=== PATIENT | female | born 1985 | race Caucasian/White ===

== ENCOUNTER 2016-04-11 08:28 | Emergency (ER) | payer SELFPAY ==
[~2016-04-11] VITALS: Ht 180.3 cm; Wt 124.5 kg
[2016-04-11 08:42] VITALS: BP 132/84; PULSE 98; RESP 18; TEMP 98.3; O2SAT 99
--- NOTE | 2016-04-11 08:53 | PD ---
HPI Chief Complaint: Musculoskeletal Complaint Time Seen by Provider: 08:46 Travel History International Travel<30 days: No Contact w/Intl Traveler<30days: No Traveled to known affect area: No History of Present Illness HPI The patient is a 30-year-old female who presents emergency department for right knee pain. The patient states she was playing last night, with her kids, when she was running and stopped short. The patient states she hyperextended her right knee. She now complains of pain and swelling of the right knee. The patient also states she hurt 2 distinct "popsicle, when she hyperextended her knee. She now has difficulty bearing weight on the affected late secondary to pain and notes limited range of motion. She does note the area swollen and tender, worsen movement, slightly alleviated at rest. The patient denies , currently has an IUD in place. PFSH Past Medical History Cardiovascular Problems: Yes (MITRAL VALVE PROLAPSE) ?: Not LMP: 03/11/16 Past Surgical History Narrative Surgical Gastric sleeve Social History Alcohol Use: No Tobacco Use: No Substance Use: No Allergies-Medications (Allergen,Severity, Reaction): Coded Allergies: Shellfish (Verified Allergy, Unknown, 04/11/16) Reported Meds & Prescriptions Reported Meds & Active Scripts Active No Active Prescriptions or Reported Medications Review of Systems Genitourinary: Positive: Other (IUD in place, denies ) Musculoskeletal: Positive: Limited ROM, Edema, Pain Neurologic: No: Paresthesia, Sensory Disturbance Physical Exam Narrative GENERAL: Awake, alert, pleasant 30-year-old female who appears her stated age and is in no acute respiratory distress. SKIN: Warm and dry. HEAD: Atraumatic. Normocephalic. EYES: No injection or drainage. MUSCULOSKELETAL: The right knee is swollen compared to left. Limited range of motion of approximately 30 on the right secondary to pain. Positive distal pulses. Patella is midline. Positive for effusion. NEUROLOGICAL: Awake and alert. No obvious cranial nerve deficits. Motor grossly within normal limits. Normal speech. PSYCHIATRIC: Appropriate mood and affect; insight and judgment normal. Data Data Last Documented VS Vital Signs Date Time Temp Pulse Resp B/P Pulse Ox O2 Delivery O2 Flow Rate FiO2 04/11/16 08:42 98.3 98 18 132/84 99 Orders Knee, Complete (4vws) (04/11/16 ) Ct Knee W/O Contrast (04/11/16 ) Acetamin-Hydrocod 325-5 Mg (Naylor 5-325 (04/11/16 09:45) Ibuprofen (Motrin) (04/11/16 09:45) MDM Medical Decision Making Medical Screen Exam Complete: Yes Emergency Medical Condition: Yes Medical Record Reviewed: Yes Interpretation(s) Last Impressions Lower Extremity CT 04/11/16 0000 Signed Impressions: Service Date/Time: March 09:56 - CONCLUSION: 1. There is a large osteochondral defect along the medial aspect of the left medial femoral condyle. This appears old as the margins are sclerotic. 2. Possible ACL tear. MRI imaging is recommended for further assessment. 3. There are degenerative changes in both medial and lateral compartment with a large joint effusion in the suprapatellar bursa. 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 5. Varicose veins. Adin García MD Knee X-Ray 04/11/16 0000 Signed Impressions: Service Date/Time: March 08:54 - CONCLUSION: 1. Plain film finding concerning for a large osteochondral defect in the medial femoral condyle. 2. Associated moderate sized suprapatellar effusion. Conner Frias MD Differential Diagnosis Differential diagnosis includes sprain, strain, ligament injury, tendon injury, joint effusion, avulsion fracture. Narrative Course X-ray of the right knee was obtained. X-ray of the right knee reveals plain film finding concerning for a large osteochondral defect in the medial femoral condyle and associated moderate-sized suprapatellar effusion. Therefore, noncontrast CT of the right knee was obtained. CT of the knee reveals that the osteochondral defect. Sclerotic, possibly old, but could be acute ACL injury. Therefore, patient was placed in the immobilizer placed on crutches, she will be referred to orthopedics. She is advised to return if symptoms worsen or progress. Diagnosis Primary Impression: Right knee pain Qualified Code: M25.561 - Acute pain of right knee Referrals: Marv Awan Jr., MD Patient Instructions: General Instructions Additional Instructions: Crutches and knee immobilizer as directed. Follow-up with orthopedics. Return if symptoms worsen or progress. Please provide the patient a copy of her CT results and x-ray results at discharge. Med/Other Pt SpecificInfo: Prescription(s) given Scripts Hydrocodone-Acetaminophen (Naylor)5-325 mg Tab1 Tab PO Q6H PRN (PAIN) #15 TAB Ref 0 Prov:Johnathon Lester MD 04/11/16 Ibuprofen 600 Mg [id number] Mg PO Q6H PRN (Pain/Inflammation) #40 TAB Ref 0 Prov:Johnathon Lester MD 04/11/16 Disposition: 01 DISCHARGE HOME Condition: Stable Johnahton Lester MD Apr 11, 2016 08:53
--- NOTE | 2016-04-11 09:22 | RADHPO ---
EXAM DATE/TIME: 04/11/2016 08:54 [facility] COMPARISON: No previous studies available for comparison. INDICATIONS : Injured right knee playing ball last night, pain is mainly anterior and medial MEDICAL HISTORY : None. SURGICAL HISTORY : None. ENCOUNTER: Initial ACUITY: 1 day PAIN SCORE: 9/10 LOCATION: Right knee FINDINGS: Four view examination of the right knee demonstrates a lucency along the medial femoral condyle lakeisha rning for a osteochondral defect. In addition, there is a moderate suprapatellar effusion. Osseous st ructures are otherwise intact and joint spaces are maintained. CONCLUSION: 1. Plain film finding concerning for a large osteochondral defect in the medial femoral condyle. 2. Associated moderate sized suprapatellar effusion. Conner Frias MD on April 11, 2016 at 9:12 Board Certified Radiologist. This report was verified electronically.
[2016-04-11] MEDS ORDERED: ACETAMINOPHEN/HYDROcodone 325 MG/5 MG TAB PO ONE (09:45)
[2016-04-11] MEDS ORDERED: IBUPROFEN 400 MG TAB PO ONE (09:45)
--- NOTE | 2016-04-11 10:20 | RADHPO ---
EXAM DATE/TIME: 04/11/2016 09:56 [facility] COMPARISON: KNEE RIGHT COMPLETE (4VWS), April 11, 2016, 8:54. INDICATIONS : Right knee pain and swelling. Hyperextended her knee yesterday. Abnormal x-ray. RADIATION DOSE: 15.20 CTDIvol (mGy) MEDICAL HISTORY : Cardiovascular disease. SURGICAL HISTORY : None. ENCOUNTER: Initial ACUITY: 1 day PAIN SCALE: 9/10 LOCATION: Right knee TECHNIQUE: Volumetric scanning of the knee was performed. Using automated exposure control and adjustment of th e mA and/or kV according to patient size, radiation dose was kept as low as reasonably achievable to obtain optimal diagnostic quality images. FINDINGS: The examination demonstrates a large osteochondral defect in the posterior medial aspect of the left femoral condyle. This appears to be the sequelae of old trauma. The margins of this are quite sclerot ic. There is a large joint effusion in the suprapatellar bursa. There are mild degenerative changes w ithin the lateral compartment as well. The posterior cruciate ligament is visualized and appears intact. The anterior cruciate is not visual ized. The exam would suggest possible ACL tear. MRI imaging would be far more sensitive to assess thi s. Note is made of an old nonossifying fibroma along the posterior aspect of the tibial cortex. Note is made of varicose veins along the lateral aspect of the right by and leg. CONCLUSION: 1. There is a large osteochondral defect along the medial aspect of the left medial femoral condyle. This appears old as the margins are sclerotic. 2. Possible ACL tear. MRI imaging is recommended for further assessment. 3. There are degenerative changes in both medial and lateral compartment with a large joint effusion in the suprapatellar bursa. 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 5. Varicose veins. Adin García MD on April 11, 2016 at 10:13 Board Certified Radiologist. This report was verified electronically.
[2016-04-11] MEDS ORDERED: NORC5TAB PO (10:30)
[2016-04-11] MEDS ORDERED: IBUP-232 PO (10:30)
== END 2016-04-11 10:54 | disposition home or self-care (01) ==
LOC: PHEFT 08:28
DX: M25.561 Pain in right knee (principal); X50.9XXA Other and unspecified overexertion or strenuous movements or postures, initial encounter; Y93.02 Activity, running
CPT/HCPCS: 73564; 73700; 99284; E0113; L1830

== ENCOUNTER → 2016-10-18 | Day surgery (SDC) | payer OTHER ==
[~2016-10-18] MED LIST: BACITRACIN IM FOR SOLN 50,000 UNIT VIAL ONE; BUPIVACAINE HCL PF 0.75% 30 ML VIAL ONE; BUPIVACAINE/EPINEPHRINE 0.25% 50 ML VIAL ONE; BUPIVACAINE/EPINEPHRINE 0.5% 50 ML VIAL ONE; EPINEPHrine HCL (1:1000) 30 MG/30 ML VIAL ONE; IBUP-232 PO; KETOROLAC TROMETHAMINE 30 MG/ML (IVP) VIAL IV PUSH ONE; LACTATED RINGER'S 1000 ML INJ 1,000 ML ONE; LIDOCAINE 1.5%/EPINEPHrine 1:200,000 PF SOLN 30 ML AMP ONE; MIDAZOLAM HCL 5 MG/ML VIAL (1 ML) ONE; NORC5TAB PO; ONDANSETRON HCL 4 MG/2 ML VIAL IV PUSH ONE; PROPOFOL 200 MG/20 ML AMP IV ONE; SODIUM CHLORIDE 0.9% INJ 10 ML ONE; ceFAZolin 2 GM PREMIX 50 ML ONE; ceFAZolin INJ 1,000 MG VIAL ONE
--- NOTE | 2016-10-21 08:17 | MP ---
cc: REBA YI M.D. DATE OF SURGERY 10/18/2016. PREOPERATIVE DIAGNOSES Right knee anterior cruciate ligament tear. Right knee medial meniscus tear. POSTOPERATIVE DIAGNOSES Right knee anterior cruciate ligament tear. Right knee medial meniscus tear. PROCEDURE Right knee arthroscopic anterior cruciate ligament allograft reconstruction. Right knee arthroscopic partial medial meniscectomy. SURGEON Dr. Reba Yi SOCIAL WORKER Madhav Zamudio PA-C ANESTHESIA General with a femoral nerve block. ESTIMATED BLOOD LOSS Less than 50 cc TOURNIQUET TIME 0 minutes. COMPLICATIONS None. IMPLANTS USED Arthrex. JUSTIFICATION This patient is a 31-year-old female who injured the right knee. She had resulting persistence of pain and instability in regards to her condition with failed conservative treatment. Clinical exam as well as MRI confirmed the above-named findings. The patient was counseled as to the risks, benefits and alternatives of the above-named proposed surgical procedure. She did wish to proceed with surgery. PROCEDURE IN DETAIL Written consent was obtained. The patient was identified by names. The anesthesiologist, Dr. Sams, performed a right femoral nerve block. The patient was taken to the operating room and general anesthesia was administered as well as 2 grams of IV Ancef. The right thigh was carefully placed in a well-padded leg hawley, the right lower extremity prepped and draped using isopropyl alcohol, Hibiclens solution and ChloraPrep solution. After a time-out was performed, a standard medial and lateral parapatellar arthroscopic portal was established. The patellofemoral joint revealed no chondromalacia. The medial compartment revealed a complex unstable tear of the posterior horn of the medial meniscus. An arthroscopic biter followed by an arthroscopic shaver was introduced into the medial compartment to perform a partial medial meniscectomy. The meniscal rim was probed and note to be stable. There is evidence of an osteochondral injury. The medial femoral condyle was stable upon probing. The intercondylar notch revealed disruption of the anterior cruciate ligament. The lateral compartment was free of meniscal pathology and chondromalacia. The shaver was used to perform debridement of the torn anterior cruciate ligament itself and arthroscopic bur was used to perform a notchplasty. The posterior wall was well-visualized. An Arthrex retro-cutting tibial guide was centered within the footprint of the lumbee ACL, was used to capture a 10-mm drill bit. The tibial tunnel was retro-cut 10 mm in diameter. A 7-mm [id number] medial portal guide was placed along the lateral femoral condyle from the medial portal. The knee was hyper-flexed. A guide pin was drilled exiting the superolateral aspect of the knee. Subsequently a low-profile cannulated 10-mm reamer was drilled to a depth of 25 mm. The shaver was used to clean soft tissue and bone debris from within the knee joint. The Beath needle was used to shuttle a FiberLink suture initially from the medial portal exiting the femoral tunnel, then subsequently from the tibial tunnel. On the back table the posterior tibialis tendon allograft was thawed in antibiotic solution. Madhav Zamudio, physician liaison inspection laboratory assistant certified, was instrumental in fashioning the graft to its full diameter of 10 mm. A #2 FiberWire whipstitch was placed in the proximal and distal portion of the graft and graft was pre-tensioned on the back table. Once prepared, an Arthrex TightRope anchor was placed in the midportion of the graft. The sutures from the anchor were placed through the eyelet of the FiberLink suture then shuttled from the tibial tunnel exiting the femoral tunnel. The flipped anchor was then pulled from the transosseous tunnels exiting the lateral femoral cortex of the femoral tunnel, obtaining excellent purchase. Once secured, the graft was then pulled from the tibial tunnel into the femoral tunnel and well seated. The knee taken through a full range of motion with no evidence of pistoning or impingement with the leg held in near-full extension. A guidewire was placed along the anterior border of the graft and an Arthrex 9 x 20-mm Bioabsorbable interference screw was used for fixation and intraoperative Cristiane exam was performed which was negative. The graft exiting the tibial tunnel was removed. The tibial incision was closed with 3-0 Vicryl suture, the skin incision closed with 3-0 Prolene. Sterile dressings were applied. The patient tolerated the procedure well with no intraoperative complications noted. Madhav Zamudio, Physician Blending Kettle Tender Certified, was present during the entire procedure to include patient positioning and the procedure itself. The medical necessity of a physician liaison inspection laboratory assistant was indicated in this case due to the complexity of the procedure. He assisted in appropriate manipulation of the leg, manipulation of the camera. He assisted in the preparation of the graft and also drilling of tunnels, implantation of the graft and internal fixation devices for the purposes of reconstruction. MD MADAI Mccray/ZOE /9:47 AM /7:55 AM
== END | disposition home or self-care (01) ==
LOC: ESDC 07:40
PROVIDERS: ATTEND Orthopaedic Surgery Sports Medicine
DX: S83.511A Sprain of anterior cruciate ligament of right knee, initial encounter (principal); S83.231A Complex tear of medial meniscus, current injury, right knee, initial encounter
CPT/HCPCS: 01400; 01991; 29881; 29888; 64447; C1713; J0690; J1885; J2250; J2405; J7120; J0171